=== PATIENT | female | born 1985 | race Caucasian/White ===

== ENCOUNTER 2020-04-06 12:44 | Emergency (ER) | payer OTHER ==
[~2020-04-06] VITALS: Ht 160 cm; Wt 65.8 kg
[2020-04-06] MEDS ORDERED: PROAIR HFA8.5 GM INH (13:46)
[2020-04-06] MEDS ORDERED: PREDNISONE 20 M20 MG PO (13:46)
[2020-04-06 14:01] VITALS: BP 134/74
== END 2020-04-06 14:04 | disposition home or self-care (01) ==
LOC: M.ERS 12:44
DX: U07.1 COVID-19 (principal)